=== PATIENT | female | born 2000 | race Caucasian/White ===

== ENCOUNTER 2023-10-01 14:57 | Day surgery (SDC) | payer OTHER ==
[2023-10-01 15:24] VITALS: BMI 29.9
[2023-10-01] MEDS ORDERED: hydrALAZINE 20 MG/ML VIAL SLOW IVP PRN (15:59)
== END 2023-10-01 17:20 | disposition home or self-care (01) ==
LOC: CSHLD/OP 14:57
PROVIDERS: ATTEND Obstetrics & Gynecology
DX: O47.03 False labor before 37 completed weeks of gestation, third trimester (principal); O36.8130 Decreased fetal movements, third trimester, not applicable or unspecified; Z3A.34 34 weeks gestation of pregnancy
CPT/HCPCS: 76815; 99282

== ENCOUNTER 2023-10-07 19:19 | Day surgery (SDC) | payer OTHER ==
[2023-10-07 19:38] VITALS: BMI 24.4
[2023-10-07] MEDS ORDERED: hydrALAZINE 20 MG/ML VIAL SLOW IVP PRN (20:11)
== END 2023-10-07 20:31 | disposition home or self-care (01) ==
LOC: CSHLD/OP 19:19
PROVIDERS: ATTEND Family Medicine
DX: O47.03 False labor before 37 completed weeks of gestation, third trimester (principal); O99.513 Diseases of the respiratory system complicating pregnancy, third trimester; J45.909 Unspecified asthma, uncomplicated; Z3A.35 35 weeks gestation of pregnancy; Z79.899 Other long term (current) drug therapy
CPT/HCPCS: 99282